=== PATIENT | male | born 1950 | race Caucasian/White ===

== ENCOUNTER → 2025-10-05 09:27 | Outpatient (REF) | payer MEDICARE, OTHER, SELFPAY | LOC: RCS 09:27 | PROVIDERS: ATTENDING PHYSICIAN Orthopaedic Surgery Hand Surgery; FAMILY PHYSICIAN Internal Medicine Gastroenterology | DX: M72.0 Palmar fascial fibromatosis [Dupuytren] (principal) | CPT/HCPCS: 93005 ==